=== PATIENT | female | born 1965 | race Two or more races ===

== ENCOUNTER 2023-12-07 20:16 | Emergency (ER) | payer MEDICAID, OTHER ==
[~2023-12-07] VITALS: Ht 165.1 cm; Wt 74.1 kg
[2023-12-07] MEDS: PROMETHAZINE W/CODEINE 5 ML ORAL SYRUP PO ONE (20:54)
[2023-12-07] MEDS: ALBUTEROL SULF 2.5 MG/0.5ML(0.5%) NEB SOLN NEB ONE (21:01)
[2023-12-07 21:18] LABS: Basophils # (auto) 0.1 10 ^3/uL (0-0.2); Basophils % (auto) 0.8 % (0.0-2.0); Eosinophils # (auto) 0.1 10 ^3/uL (0-0.8); Eosinophils % (auto) 0.7 % (0.0-7.0); Hematocrit 38.8 % (36.0-46.0); Hemoglobin 12.7 g/dL (12.2-16.2); Lymphocytes # (auto) 3.4 10 ^3/uL (0.4-5.4); Lymphocytes % (auto) 30.4 % (10.0-50.0); Mean Corpuscular Hemoglobin 28.2 pg (28.0-32.0); Mean Corpuscular Hgb Conc. 32.8 g/dL (32.0-36.0); Monocytes # (auto) 0.8 10 ^3/uL (0-1.3); Monocytes % (auto) 7.5 % (0.0-12.0); Neutrophils # (auto) 6.8 10 ^3/uL (1.6-8.6); Neutrophils % (auto) 60.6 % (37.0-80.0); Red Blood Cells 4.52 10^6/uL (4.0-5.20); Red Cell Distribution Width 13.8 % (11.8-14.3); White Blood Cell 11.2 10^3/uL (4.4-10.8)
[2023-12-07 21:30] LABS: Alanine Aminotransferase 13 U/L (7-40); Albumin 4.3 g/dL (3.2-4.8); Alkaline Phosphatase 107 U/L (46-116); Anion Gap 6 (5-15); Aspartate Aminotransferase 12 U/L (13-40); BUN/Creatinine Ratio 11.9 (10.0-20.0); Bilirubin, Total 0.4 mg/dL (0.2-1.0); Blood Urea Nitrogen 10 mg/dL (9-23); Calcium 9.4 mg/dL (8.7-10.4); Carbon Dioxide 25 mmol/L (20-30); Chloride 111 mmol/L (98-107); Glucose 122 mg/dL (74-106); Potassium 3.8 mmol/L (3.5-5.1); Sodium 142 mmol/L (136-145)
[2023-12-07] MEDS ORDERED: cefTRIAXone W LIDOCAINE 1 GM IM IM ONE (21:45)
[2023-12-07 22:20] VITALS: PULSE 90; RESP 16; O2SAT 98
[2023-12-07] MEDS: LIDOCAINE 1% HCL (LOCAL ANESTH.) INJ 20ML MDV ONE (22:20)
[2023-12-07] MEDS: cefTRIAXone SOD 1,000 MG VL IM ONE (22:20)
[2023-12-07 23:07] LABS: COVID19 ANTIGEN SOFIA FIA NEGATIVE (NEGATIVE)
[2023-12-08] MEDS ORDERED: AUG875T PO (02:51)
[2023-12-08] MEDS ORDERED: ALBUAER3 IN (02:51)
[2023-12-08 03:15] VITALS: BP 105/69; PULSE 92; RESP 18; TEMP 98.5; O2SAT 96
== END 2023-12-08 03:28 | disposition home or self-care (01) ==
LOC: ER 20:16
DX: J18.9 Pneumonia, unspecified organism (principal); Z20.822 Contact with and (suspected) exposure to COVID-19
CPT/HCPCS: 36415; 71045; 80053; 84484; 85025; 87426; 93005; 94640; 96372; 99285; J0696; J2001

== ENCOUNTER 2024-05-05 16:48 | Emergency (ER) | payer MEDICAID ==
[~2024-05-05] VITALS: Ht 165.1 cm; Wt 77.5 kg
[~2024-05-05 16:48] MED LIST: ALBUAER3 IN; AUG875T PO
--- NOTE | 2024-05-05 17:08 | ED.PDOC ---
History of Present Illness HPI Comments 58F who is pashto speaking only, presents to the ER w/ no prior Hx associated to the c/c of LE. Pt reports that a pig ran into her left knee 1 week ago and ever since then she has been having pain on the LE as well as swelling. Pt notes that she has been taking ibuprofen for the pain. Denies chills, fever, N/V/D, SOB, CP or other associated symptom's, modifiers, or recent injuries or sick contact at this time. Chief Complaint: Lower Extremity Time Seen by MD: 17:00 Reviewed Notes: Nurses Notes, Medications, Allergies Allergies: Coded Allergies: NO KNOWN ALLERGIES (Unverified , 12/07/23) Home Meds Active Scripts Albuterol Sulfate (VENTOLIN MDI) 90 Mcg Ih, 90 MCG IN Q6HP PRN for 10 Days, MCG Prov:SUE TRENT MD 12/08/23 Amoxicillin & Pot Clavulanate (AUGMENTIN TABLET) 875 Mg Tb, 875 MG PO BID for 10 Days, #20 TAB Prov:SUE TRENT MD 12/08/23 Albuterol Sulfate (VENTOLIN MDI) 90 Mcg Ih, 180 MCG IN Q6HP PRN for 10 Days, #1 MCG Prov:SUE TRENT MD 12/08/23 Information Source: Patient Mode of Arrival: Ambulatory Severity: Moderate Timing: Days Duration: Since onset, Days Prehospital treatment: None Past Medical History PAST MEDICAL HISTORY: Denies Surgical History: Denies all surgeries ASSEMBLER ADJUSTER History: Denies all ASSEMBLER ADJUSTER Hx Family History Family History: Reviewed,noncontributory to illness, Unknown Social History Smoker: Non-Smoker Alcohol: Denies ETOH Use Drugs: Denies Drug Use Lives In: Home Constitutional: reports: others (Left knee pain); denies: chills, diaphoresis, fatigue, fever, malaise, sweats, weakness EENTM: denies: blurred vision, double vision, ear bleeding, ear discharge, ear drainage, ear pain, ear ringing, eye pain, eye redness, hearing loss, mouth pain, mouth swelling, nasal discharge, nose bleeding, nose congestion, nose pain, photophobia, tearing, throat pain, throat swelling, voice changes, others Respiratory: denies: cough, hemoptysis, orthopnea, SOB at rest, shortness of breath, SOB with excertion, stridor, wheezing, others Cardiovascular: denies: chest pain, dizzy spells, diaphoresis, Dyspnea on exertion, edema, irregular heart beat, left arm pain, lightheadedness, p alpitations, PND, syncope, others Gastrointestinal: denies: abdomen distended, abdominal pain, blood streaked bowels, constipated, diarrhea, dysphagia, difficulty swallowing, hematemesis, melena, nausea, poor appetite, poor fluid intake, rectal bleeding, rectal pain, vomiting, others Genitourinary: denies: abnormal vagina bleeding, burning, dyspareunia, dysuria, flank pain, frequency, hematuria, incontinence, pain, , vagina discharge, urgency, others Neurological: denies: dizziness, fainting, headache, left sided numbness, left sided weakness, numbness, paresthesia, pre-existing deficit, right sided numbness, right sided weakness, seizure, speech problems, tingling, tremors, weakness, others Musculoskeletal: denies: back pain, gout, joint pain, joint swelling, muscle pain, muscle stiffness, neck pain, others Integumetry: denies: bruises, change in color, change in hair/nails, dryness, laceration, lesions, lumps, rash, wounds, others Allergic/Immunocompromised: denies: Difficulty Healing, Frequent Infections, Hives, Itching, others Hematologic/Lymphatic: denies: anemia, blood clots, easy bleeding, easy bruising, swollen glands, others Endocrine: denies: excessive hunger, excessive sweating, excessive thirst, excessive urination, flushing, intolerance to cold, intolerance to heat, unexplained weight gain, unexplained weight loss, others Psychiatric: denies: anxiety, bipolar disorder, depression, hopeless, panic disorder, schizophrenia, sleepless, suicidal, others All Other Systems: Reviewed and Negative Physical Exam Exam Comments Left knee swollen No instability or bruising Tender to palpation General Appearance: No Apparent Distress, Normal HEENT: Normal ENT Inspection, Pharynx Normal, TMs Normal Neck: Full Range of Motion, Non-Tender, Normal, Normal Inspection Respiratory: Chest Non-Tender, Lungs Clear, No Accessory Muscle Use, No Respiratory Distress, Normal Breath Sounds Cardiovascular: No Edema, No JVD, No Murmur, No Gallop, Normal Peripheral Pulses, Regular Rate/Rhythm Breast Exam: Deferred Gastrointestinal: No Organomegaly, Non Tender, No Pulsatile Mass, Normal Bowel Sounds, Soft Genitalia: Deferred Pelvic: Deferred Rectal: Deferred Extremities: No calf tenderness, Normal capillary refill, Normal inspection, Normal range of motion, Non-tender, No pedal edema Musculoskeletal : Apperance: Normal Neurologic: Alert, grain commodity manager II-XII nml as Tested, No Motor Deficits, Normal Affect, Normal Mood, No Sensory Deficits Cerebellar Function: Normal Reflexes: Normal Skin: Dry, Normal Color, Warm Lymphatic: No Adenopathy Was a procedure done? Was a procedure done?: Yes Sedation Sedation?: No Informed consent obtained: Yes Other Procedure Procedure left knee immobilizer placed in good position, with intact neurovascular functions Differential Dx Considerations may include: dislocation, fracture, sprain, strain, contusion X-Ray, Labs, Meds, VS Vital Signs Date Time Temp Pulse Resp B/P (MAP) Pulse Ox O2 Delivery O2 Flow Rate FiO2 05/05/24 17:10 98.3 90 18 119/75 (90) 97 98.3 05/05/24 17:10 90 18 97 Room Air 05/05/24 17:02 99.6 97 18 130/78 (95) 98 Current Medications Medications (Trade) Dose Ordered Sig/Andrei Route Start Time Stop Time Status Last Admin Ketorolac Tromethamine (Toradol Injection) 60 mg ONCE ONCE IM 05/05/24 17:15 05/05/24 17:16 DC 05/05/24 17:12 Time of 1ST Reevaluation: 17:30 Reevaluation 1ST: Unchanged Time of 2ND Reevaluation: 19:23 Patient Education/Counseling: Diagnosis, Treatment, Prognosis, Need For Follow Up Family Education/Counseling: No Family Present Additional Information - I reviewed the following notes from patient's past medical encounters:12/07/23 - The following tests were ordered, and results were reviewed by me:X-Ray - I reviewed and agreed with the following test results read by other provider: X-ray - I discussed treatments and results with medical personnel pt has a contused knee. there is no instability. xray does not show a fracture of dislocation. i will place a knee immobilizer on for comfort, recommend RICE, and issue her crutches. she is stable to follow up with her PCP in 3 days Departure 1 Departure Time of Disposition: 19:24 Impression: Primary Impression: Left knee sprain Qualified Codes: S83.92XA - Sprain of unspecified site of left knee, initial encounter Disposition: HOME / SELF CARE / HOMELESS Condition: Good Additional Instructions: elevat the affected knee, use cold compress, knee immobilizer and crutches. follow up with your doctor in 3 days e-Prescriptions Ibuprofen Micronized (MOTRIN TABLET) 600 Mg Tb 600 MG PO TID PRN, #40 TAB *Black box warning-NSAIDS can increase risk of IL & hypertension, GI irritation, ulceration, bleed, perferation. Do not use post cardiac surgery. Use short duration/lowest effective dose. Prov: SURJIT COLINDRES MD 05/05/24 Discharged With: Self Critical Care Note Critical Care Time?: No Stability Stability form required: No I personally scribed for SURJIT COLINDRES MD ([email or web address]) on 05/05/24 at 17:08. Electronically submitted by Sedrick Quispe ([employer]). I personally scribed for SURJIT COLINDRES MD ([email or web address]) on 05/05/24 at 17:09. Electronically submitted by Sedrick Quispe ([employer]). SURJIT COLINDRES MD May 05, 2024 17:08
[2024-05-05] MEDS: KETOROLAC TROMETH 60MG/2ML VIAL IM ONE (17:12)
--- NOTE | 2024-05-05 18:11 | DVH ---
CLINICAL INDICATION: injury TECHNIQUE: 3 radiographic views of the left knee were obtained. Comparison: None FINDINGS/IMPRESSION: There is no evidence of acute fracture or dislocation. If symptoms persist recommend MRI. The visualized joint space is well maintained. The alignment is anatomical. There is no radiopaque foreign body.
[2024-05-05] MEDS ORDERED: IBU600T PO (19:25)
[2024-05-05 20:20] VITALS: BP 94/71; PULSE 79; RESP 16; TEMP 98.5; O2SAT 98
== END 2024-05-05 20:22 | disposition home or self-care (01) ==
LOC: ER 16:48
DX: S83.8X2A Sprain of other specified parts of left knee, initial encounter (principal); Z79.899 Other long term (current) drug therapy; X58.XXXA Exposure to other specified factors, initial encounter; Y93.89 Activity, other specified; Y92.89 Other specified places as the place of occurrence of the external cause; Y99.8 Other external cause status
CPT/HCPCS: 29505; 73562; 96372; 99283; J1885

== ENCOUNTER 2024-09-15 21:32 | Inpatient (IN) | payer MEDICAID ==
[~2024-09-15] VITALS: Ht 165.1 cm; Wt 75.6 kg
[~2024-09-15 21:32] MED LIST changes: +IBU600T PO
--- NOTE | 2024-09-15 22:19 | ED.PDOC ---
SOB-HPI HPI Comments PT PRESENTED TO ED FOR FLU-LIKE S/S: LEFT EARACHE, PRODUCTIVE COUGH, SORE THROA T, N/V, AND CHILLS X3 DAYS. DENIES DIFFICULTY BREATHING, SHORTNESS OF BREATH, CHEST PAIN. Chief Complaint: Flu like Time Seen by MD: 21:51 Primary Care Provider: UNKNOWN Reviewed notes: Nurses Notes, Medications, Allergies Information Source: Patient Mode of Arrival: Ambulatory Past Medical History PAST MEDICAL HISTORY: Denies Surgical History: Denies all surgeries CLINICAL EDUCATOR History: Denies all CLINICAL EDUCATOR Hx Family History Family History: Reviewed,noncontributory to illness, Unknown Social History Smoker: Non-Smoker Alcohol: Denies ETOH Use Drugs: Denies Drug Use Lives In: Home Constitutional: reports: chills, fatigue; denies: diaphoresis, fever, malaise, sweats, weakness, others EENTM: reports: nasal discharge, throat pain; denies: blurred vision, double vision, ear bleeding, ear discharge, ear drainage, ear pain, ear ringing, eye pain, eye redness, hearing loss, mouth pain, mouth swelling, nose bleeding, nose congestion, nose pain, photophobia, tearing, throat swelling, voice changes, others Respiratory: reports: cough; denies: hemoptysis, orthopnea, SOB at rest, shortness of breath, SOB with excertion, stridor, wheezing, others Cardiovascular: denies: chest pain, dizzy spells, diaphoresis, Dyspnea on exertion, edema, irregular heart beat, left arm pain, lightheadedness, palpitations, PND, syncope, others Gastrointestinal: reports: nausea, vomiting; denies: abdomen distended, abdominal pain, blood streaked bowels, constipated, diarrhea, dysphagia, difficulty swallowing, hematemesis, melena, poor appetite, poor fluid intake, rectal bleeding, rectal pain, others Genitourinary: denies: abnormal vagina bleeding, burning, dyspareunia, dysuria, flank pain, frequency, hematuria, incontinence, pain, , vagina discharge, urgency, others Neurological: denies: dizziness, fainting, headache, left sided numbness, left sided weakness, numbness, paresthesia, pre-existing deficit, right sided numbnes s, right sided weakness, seizure, speech problems, tingling, tremors, weakness, others Musculoskeletal: denies: back pain, gout, joint pain, joint swelling, muscle pain, muscle stiffness, neck pain, others Integumetry: denies: bruises, change in color, change in hair/nails, dryness, laceration, lesions, lumps, rash, wounds, others Allergic/Immunocompromised: denies: Difficulty Healing, Frequent Infections, Hives, Itching, others Hematologic/Lymphatic: denies: anemia, blood clots, easy bleeding, easy bruising, swollen glands, others Endocrine: denies: excessive hunger, excessive sweating, excessive thirst, excessive urination, flushing, intolerance to cold, intolerance to heat, unexplained weight gain, unexplained weight loss, others Psychiatric: denies: anxiety, bipolar disorder, depression, hopeless, panic disorder, schizophrenia, sleepless, suicidal, others Physical Exam General Appearance: No Apparent Distress, Normal HEENT: Pharyngeal Erythema, TMs Normal Neck: Full Range of Motion, Non-Tender Respiratory: Decreased Breath Sounds, No Respiratory Distress Cardiovascular: No Edema, No JVD, No Murmur, No Gallop, Normal Peripheral Pulse s, Regular Rate/Rhythm Breast Exam: Deferred Gastrointestinal: No Organomegaly, Non Tender, No Pulsatile Mass, Normal Bowel Sounds, Soft Genitalia: Deferred Pelvic: Deferred Rectal: Deferred Extremities: Normal capillary refill, Normal inspection, Normal range of motion, Non-tender, No pedal edema Musculoskeletal : Apperance: Normal Neurologic: Alert, tag press operator II-XII nml as Tested, No Motor Deficits, Normal Affect, Normal Mood, No Sensory Deficits Cerebellar Function: Normal Reflexes: Normal Skin: Dry, Normal Color, Warm Lymphatic: No Adenopathy Was a procedure done? Was a procedure done?: No Differential Dx Differential Diagnosis: Bronchitis, Pneumonia, Pharyngitis, URI X-Ray, Labs, Meds, VS Vital Signs Date Time Temp Pulse Resp B/P (MAP) Pulse Ox O2 Delivery O2 Flow Rate FiO2 09/16/24 00:15 100.2 105 19 102/57 (72) 95 100.2 09/16/24 00:15 100.2 09/15/24 22:53 101.3 09/15/24 22:41 120 20 96 Room Air 09/15/24 22:41 101.3 120 20 109/63 (78) 96 101.3 09/15/24 21:46 100.4 124 18 120/76 (91) 94 100.4 Lab Test 09/15/24 23:40 09/15/24 22:30 Range/Units White Blood Count 21.3 H 4.4-10.8 10^3/uL Red Blood Count 4.44 4.0-5.20 10^6/uL Hemoglobin 12.6 12.2-16.2 g/dL Hematocrit 38.6 36.0-46.0 % Mean Corpuscular Volume 87.0 80.0-100.0 fL Mean Corpuscular Hemoglobin 28.3 28.0-32.0 pg Mean Corpuscular Hemoglobin Concent 32.5 32.0-36.0 g/dL Red Cell Distribution Width 14.0 11.8-14.3 % Platelet Count 232 140-450 10^3/uL Mean Platelet Volume 9.4 6.9-10.8 fL Neutrophils (%) (Auto) 85.8 H 37.0-80.0 % Lymphocytes (%) (Auto) 7.5 L 10.0-50.0 % Monocytes (%) (Auto) 6.4 0.0-12.0 % Eosinophils (%) (Auto) 0.0 0.0-7.0 % Basophils (%) (Auto) 0.3 0.0-2.0 % Neutrophils # (Auto) 18.2 H 1.6-8.6 10 ^3/uL Lymphocytes # (Auto) 1.6 0.4-5.4 10 ^3/uL Monocytes # (Auto) 1.4 H 0-1.3 10 ^3/uL Eosinophils # (Auto) 0 0-0.8 10 ^3/uL Basophils # (Auto) 0.1 0-0.2 10 ^3/uL Nucleated Red Blood Cells 0.0 % Sodium Level 138 136-145 mmol/L Potassium Level 3.5 3.5-5.1 mmol/L Chloride Level 106 98-107 mmol/L Carbon Dioxide Level 22 20-31 mmol/L Anion Gap 10 5-15 Blood Urea Nitrogen 15 9-23 mg/dL Creatinine 0.84 0.550-1.02 mg/dL Glomerular Filtration Rate Calc 80 >90 mL/min BUN/Creatinine Ratio 17.9 10.0-20.0 Serum Glucose 163 H 74-106 mg/dL Lactic Acid Level 0.9 0.4-2.0 mmol/L Calcium Level 8.6 L 8.7-10.4 mg/dL Total Bilirubin 0.4 0.2-1.0 mg/dL Aspartate Amino Transferase (AST) 15 13-40 U/L Alanine Aminotransferase (ALT) 13 7-40 U/L Alkaline Phosphatase 93 46-116 U/L Total Protein 7.3 5.7-8.2 g/dL Albumin 4.1 3.2-4.8 g/dL Influenza Type A Antigen Negative Negative Influenza Type B Antigen Negative Negative SARS-CoV-2 Antigen (Rapid) Negative NEGATIVE Current Medications Medications (Trade) Dose Ordered Sig/Andrei Route Start Time Stop Time Status Last Admin Sodium Chloride 1,000 ml @ 1,000 mls/hr Q1H ONCE IV 09/15/24 22:30 09/15/24 23:29 DC 09/15/24 22:48 Acetaminophen (Tylenol Tablet Or Capsule) 500 mg ONCE ONCE PO 09/15/24 22:45 09/15/24 22:46 DC 09/15/24 22:53 X-Ray, Labs, Meds, VS Comment IMAGING: Chest x-ray reviewed shows left upper lobe pneumonia MEDICATIONS: TORADOL 30 MG IV PUSH NS 1000 ML BOLUS CEFTRIAXONE 1 G IV PIGGYBACK SWABS: Negative influenza a and B Negative COVID 19 LABS: WBC HIGH 21.3 NEUTROPHILS 89.3 LACTIC 0.9 CMP WITHIN NORMAL LIMITS UA PENDING PLAN: We will admit to hospitalist for pneumonia and leukocytosis white blood count of 21.3 neutrophils 89.3 Time of 1ST Reevaluation: 22:18 Reevaluation 1ST: Unchanged Time of 2ND Reevaluation: 02:33 Reevaluation 2ND: Improved Patient Education/Counseling: Diagnosis, Treatment, Prognosis, Need For Follow Up Family Education/Counseling: Diagnosis, Treatment, Prognosis, Need For Follow Up Departure 1 Departure Time of Disposition: 00:26 Impression: Primary Impression: Pneumonia Qualified Codes: J18.9 - Pneumonia, unspecified organism Additional Impression: Leukocytosis Qualified Codes: D72.829 - Elevated white blood cell count, unspecified Disposition: ADMITTED INPATIENT Condition: Stable Discharged With: Spouse Critical Care Note Critical Care Time?: No Stability Stability form required: No Heart Score Heart Score: Heart Score Response (Comments) Value History N/A 0 EKG N/A 0 Age 45-64 1 Risk Factors N/A 0 Troponin N/A 0 Total 1 HARRY RICE [facility] Sep 15, 2024 22:19
[2024-09-15] MEDS: SODIUM CHLORIDE 0.9% 1,000 ML IV ONE (22:48)
[2024-09-15] MEDS: ACETAMINOPHEN 500 MG TAB or CAP PO ONE (22:53)
[2024-09-15 22:59] LABS: Rapid Influenza A Negative (Negative); Rapid Influenza B Negative (Negative)
[2024-09-15] MEDS: KETOROLAC TROMETH 30 MG/ML 1ML VIAL IV ONE (22:59)
[2024-09-15 23:00] LABS: COVID19 ANTIGEN SOFIA FIA NEGATIVE (NEGATIVE)
--- NOTE | 2024-09-15 23:39 | DVH ---
CHEST RADIOGRAPH Indication: FEVER SOB Technique: Frontal and lateral view of the chest was obtained Comparison: None FINDINGS: Lines and Tubes: None Lungs: Mild opacity noted in the left upper lobe which may represent pneumonia. Right lung is clear. Pleura: No effusion. No pneumothorax. Cardiomediastinal contours: Unremarkable Bones: Unremarkable IMPRESSION: Mild opacity noted in left upper lobe which may represent pneumonia.
[2024-09-15 23:59] LABS: Basophils # (auto) 0.1 10 ^3/uL (0-0.2); Basophils % (auto) 0.3 % (0.0-2.0); Eosinophils # (auto) 0 10 ^3/uL (0-0.8); Hematocrit 38.6 % (36.0-46.0); Hemoglobin 12.6 g/dL (12.2-16.2); Lymphocytes # (auto) 1.6 10 ^3/uL (0.4-5.4); Lymphocytes % (auto) 7.5 % (10.0-50.0); Mean Corpuscular Hemoglobin 28.3 pg (28.0-32.0); Mean Corpuscular Hgb Conc. 32.5 g/dL (32.0-36.0); Monocytes # (auto) 1.4 10 ^3/uL (0-1.3); Monocytes % (auto) 6.4 % (0.0-12.0); Neutrophils # (auto) 18.2 10 ^3/uL (1.6-8.6); Neutrophils % (auto) 85.8 % (37.0-80.0); Platelet Count (auto) 232 10^3/uL (140-450); Red Blood Cells 4.44 10^6/uL (4.0-5.20); White Blood Cell 21.3 10^3/uL (4.4-10.8)
[2024-09-16] VITALS (10 sets, daily range): BP systolic 92–110; BP diastolic 54–65; PULSE 78–88; RESP 12–20; TEMP 97.2–99; O2SAT 96–100
[2024-09-16] MEDS: cefTRIAXone 1GM/50ML D5W 50 ML IV ONE (00:09)
[2024-09-16 00:15] LABS: Alanine Aminotransferase 13 U/L (7-40); Albumin 4.1 g/dL (3.2-4.8); Alkaline Phosphatase 93 U/L (46-116); Anion Gap 10 (5-15); Aspartate Aminotransferase 15 U/L (13-40); BUN/Creatinine Ratio 17.9 (10.0-20.0); Bilirubin, Total 0.4 mg/dL (0.2-1.0); Blood Urea Nitrogen 15 mg/dL (9-23); Carbon Dioxide 22 mmol/L (20-31); Chloride 106 mmol/L (98-107); Potassium 3.5 mmol/L (3.5-5.1); Sodium 138 mmol/L (136-145); Total Protein 7.3 g/dL (5.7-8.2)
[2024-09-16 00:20] LABS: Calcium 8.6 mg/dL (8.7-10.4); Glucose 163 mg/dL (74-106)
[2024-09-16] MEDS ORDERED: ONDANSETRON HCL 4 MG/2 ML VIAL IV PRN (03:30)
--- NOTE | 2024-09-16 03:31 | DVHHP2 ---
History of Present Illness Reason for Visit: Flu-like symptoms History of Present Illness 58-year-old female presents for evaluation of flu-like symptoms. Patient reports a three day history of body aches, fever and a sore throat. Denies shortness for breath or palpitations. No GI or symptoms. Past Medical History Denies Past Surgical History Denies Family History Noncontributory Smoke: No ALCOHOL: none Drugs: None Lives: with Family Review of Systems Review of Systems Review of systems are currently negative otherwise addressed in HPI. Allergies: Coded Allergies: NO KNOWN ALLERGIES (Unverified , 12/07/23) Exam Vital Signs Vital Signs Date Time Temp Pulse Resp B/P (MAP) Pulse Ox O2 Delivery O2 Flow Rate FiO2 09/16/24 00:15 100.2 105 19 102/57 (72) 95 100.2 09/15/24 22:41 Room Air Exam Gen: 58-year-old female in mild distress Skin: Warm, dry, normal color and texture, no rash. HEENT: Normocephalic atraumatic, mucous membranes moist and pink. Neck: Cervical and supraclavicular nodes normal without enlargement, trachea is midline, thyroid gland is normal without masses. Pulmonary: Diminished breath sounds bilaterally Cardiac: Sinus tachycardia Abdomen: Soft, nontender, nondistended, bowel sounds present all 4 quadrants, no guarding, no rigidity, no organomegaly. Extremities: No cyanosis, clubbing, no edema Neuro: Cranial nerves II through XII grossly intact, normal affect and speech, no focal motor deficits. Labs/Xrays ORDERING PHYSICIAN: HARRY RICE PROCEDURE(s): CXR2 - CHEST TWO VIEWS ROUTINE REASON: FEVER SOB ORDER NUMBER(s): [id number], ACCESSION NUMBER(s): [id number] CHEST RADIOGRAPH Indication: FEVER SOB Technique: Frontal and lateral view of the chest was obtained Comparison: None FINDINGS: Lines and Tubes: None Lungs: Mild opacity noted in the left upper lobe which may represent pneumonia. Right lung is clear. Pleura: No effusion. No pneumothorax. Cardiomediastinal contours: Unremarkable Bones: Unremarkable IMPRESSION: Mild opacity noted in left upper lobe which may represent pneumonia. Labs Test 09/15/24 23:40 09/15/24 22:30 Range/Units White Blood Count 21.3 H 4.4-10.8 10^3/uL Red Blood Count 4.44 4.0-5.20 10^6/uL Hemoglobin 12.6 12.2-16.2 g/dL Hematocrit 38.6 36.0-46.0 % Mean Corpuscular Volume 87.0 80.0-100.0 fL Mean Corpuscular Hemoglobin 28.3 28.0-32.0 pg Mean Corpuscular Hemoglobin Concent 32.5 32.0-36.0 g/dL Red Cell Distribution Width 14.0 11.8-14.3 % Platelet Count 232 140-450 10^3/uL Mean Platelet Volume 9.4 6.9-10.8 fL Neutrophils (%) (Auto) 85.8 H 37.0-80.0 % Lymphocytes (%) (Auto) 7.5 L 10.0-50.0 % Monocytes (%) (Auto) 6.4 0.0-12.0 % Eosinophils (%) (Auto) 0.0 0.0-7.0 % Basophils (%) (Auto) 0.3 0.0-2.0 % Neutrophils # (Auto) 18.2 H 1.6-8.6 10 ^3/uL Lymphocytes # (Auto) 1.6 0.4-5.4 10 ^3/uL Monocytes # (Auto) 1.4 H 0-1.3 10 ^3/uL Eosinophils # (Auto) 0 0-0.8 10 ^3/uL Basophils # (Auto) 0.1 0-0.2 10 ^3/uL Nucleated Red Blood Cells 0.0 % Sodium Level 138 136-145 mmol/L Potassium Level 3.5 3.5-5.1 mmol/L Chloride Level 106 98-107 mmol/L Carbon Dioxide Level 22 20-31 mmol/L Anion Gap 10 5-15 Blood Urea Nitrogen 15 9-23 mg/dL Creatinine 0.84 0.550-1.02 mg/dL Glomerular Filtration Rate Calc 80 >90 mL/min BUN/Creatinine Ratio 17.9 10.0-20.0 Serum Glucose 163 H 74-106 mg/dL Lactic Acid Level 0.9 0.4-2.0 mmol/L Calcium Level 8.6 L 8.7-10.4 mg/dL Total Bilirubin 0.4 0.2-1.0 mg/dL Aspartate Amino Transferase (AST) 15 13-40 U/L Alanine Aminotransferase (ALT) 13 7-40 U/L Alkaline Phosphatase 93 46-116 U/L Total Protein 7.3 5.7-8.2 g/dL Albumin 4.1 3.2-4.8 g/dL Influenza Type A Antigen Negative Negative Influenza Type B Antigen Negative Negative SARS-CoV-2 Antigen (Rapid) Negative NEGATIVE Assessment/Plan Assessment/Plan Assessment Community-acquired pneumonia Leukocytosis Early sepsis Plan Admit the patient to Med [facility] [place] the hospitalist Rocephin/azithromycin Albuterol Continue treatment per orders. Plan discussed with: Patient My Orders Orders - SERJIO MOSELEY Procedure Category Date Status Time Ceftriaxone Ivpb PHA 09/16/24 Verified Rocephin 09:00 Azithromycin 500mg/ PHA 09/16/24 Verified 250ml (Zithromax 50 10:00 Albuterol Medneb PHA 09/16/24 Verified (Ventolin Medneb) 03:30 Basic Metabolic Panel LAB 09/17/24 Verified 04:00 Regular Diet DIET 09/16/24 Verified Breakfast Admit ADMIT 09/16/24 Verified 03:23 Ondansetron Hcl PHA 09/16/24 Verified (Zofran) 03:30 Complete Blood Count LAB 09/17/24 Verified 04:00 Condition: Stable PEÑA 09/16/24 Verified 03:23 Acetaminophen Tablet PHA 09/16/24 Verified (Tylenol Tablet) 03:30 Bedrest With Bathroom PEÑA 09/16/24 Verified Privileg 03:23 Date of Service: Sep 16, 2024 Billing Provider: SERJIO MOSELEY Common Visit Codes: [id number] INP/OBS CARE (HIGH) SERJIO MOSELEY Sep 16, 2024 03:31
[2024-09-16] MEDS: ALBUTEROL SULF 2.5 MG/0.5ML(0.5%) NEB SOLN NEB PRN (05:50)
[2024-09-16] MEDS: AZITHROMYCIN 500MG/ 250ML 250 ML IV SCH (06:16)
[2024-09-16] MEDS: cefTRIAXone 1GM/50ML D5W 50 ML IV SCH (09:12)
--- NOTE | 2024-09-16 16:30 | DVHPN2 ---
Subjective Assuming the care of the patient from today onwards. A 58-year-old female with no significant medical history presented to us with a flu-like symptoms fever chills body aches found to have left-sided pneumonia. Patient has been ruled out for influenza as well as COVID. Changes from previous H/P or p: No Changes Objective Vitals Vital Signs Date Time Temp Pulse Resp B/P (MAP) Pulse Ox O2 Delivery O2 Flow Rate FiO2 09/16/24 15:53 99.0 87 18 110/65 (80) 96 99.0 09/16/24 08:20 2.0 28 09/16/24 05:50 Nasal Cannula* Intake/Output Intake and Output 09/16/24 07:00 Intake Total 1240 ml Balance 1240 ml Intake Oral 240 ml IV Total 1000 ml # Voids 1 Exam HEENT pupils are reactive Neck is supple CVS S1-S2 regular rate and rhythm Respiratory diminished BS on bases GI positive bowel sound Extremity no edema SUGAR PRESSER no motor deficit Medications Current Medications Medications Dose Ordered Sig/Andrei Route Start Time Stop Time Status Last Admin Dose Admin Ceftriaxone Sodium 50 ml @ 100 mls/hr DAILY@09 IV 09/16/24 09:00 09/16/24 09:12 100 MLS/HR Azithromycin 250 ml @ 125 mls/hr DAILY IV 09/16/24 06:00 09/16/24 06:16 125 MLS/HR Albuterol 2.5 mg Q6HPRN PRN NEB 09/16/24 03:30 09/16/24 05:50 2.5 MG Ondansetron HCl 4 mg Q4HP PRN IV 09/16/24 03:30 Acetaminophen 650 mg Q6HP PRN PO 09/16/24 03:30 Laboratory Results Laboratory Tests 09/15/24 23:40 Chemistry Test 09/15/24 23:40 Albumin 4.1 g/dL (3.2-4.8) Calcium Level 8.6 mg/dL (8.7-10.4) L Total Protein 7.3 g/dL (5.7-8.2) LFT Test 09/15/24 23:40 Alanine Aminotransferase (ALT) 13 U/L (7-40) Alkaline Phosphatase 93 U/L (46-116) Aspartate Amino Transferase (AST) 15 U/L (13-40) Total Bilirubin 0.4 mg/dL (0.2-1.0) Assessment/Plan Assessment/Plan 58-year-old female with no significant past medical history presented to the hospital with flu-like symptoms fevers chills body aches at home found to have 1. Community-acquired pneumonia 2. Leukocytosis likely reactive secondary to 1. 3. Fever body aches rigors and chills, rule out bacteremia -blood cultures time two, continue IV antibiotics, repeat CBC Plan discussed with: Patient, Daughter My Orders Orders - DALLIN UMANZOR MD Procedure Category Date Status Time Blood Culture CARL 09/16/24 In Process 14:39 Date of Service: Sep 16, 2024 Billing Provider: DALLIN UMANZOR MD Common Visit Codes: [id number] INP/OBS CARE(MOD) DALLIN UMANZOR MD Sep 16, 2024 16:30
[2024-09-16] MEDS: ACETAMINOPHEN 325 MG TAB PO PRN (17:16)
[2024-09-17] VITALS (11 sets, daily range): BP systolic 100–119; BP diastolic 60–71; PULSE 72–82; RESP 14–20; TEMP 98–99.3; O2SAT 94–100
[2024-09-17] MEDS ORDERED: NALOXONE HCL 0.4 MG/ML VIAL ONE (00:20)
[2024-09-17] MEDS ORDERED: NOREPINEPHRINE 8 MG/250ML KIT 250 ML IV ONE (00:27)
[2024-09-17 06:18] LABS: Chloride 104 mmol/L (98-107); Potassium 3.6 mmol/L (3.5-5.1); Sodium 140 mmol/L (136-145)
[2024-09-17 06:19] LABS: Anion Gap 9 (5-15); Carbon Dioxide 27 mmol/L (20-31)
[2024-09-17 06:20] LABS: Calcium 9.1 mg/dL (8.7-10.4)
[2024-09-17 06:25] LABS: BUN/Creatinine Ratio 16.4 (10.0-20.0); Blood Urea Nitrogen 11 mg/dL (9-23)
[2024-09-17 06:34] LABS: Glucose 116 mg/dL (74-106)
[2024-09-17 06:41] LABS: Basophils # (auto) 0 10 ^3/uL (0-0.2); Basophils % (auto) 0.1 % (0.0-2.0); Eosinophils # (auto) 0.1 10 ^3/uL (0-0.8); Eosinophils % (auto) 0.4 % (0.0-7.0); Hematocrit 35.4 % (36.0-46.0); Hemoglobin 11.9 g/dL (12.2-16.2); Lymphocytes # (auto) 3.3 10 ^3/uL (0.4-5.4); Lymphocytes % (auto) 24.3 % (10.0-50.0); Mean Corpuscular Hemoglobin 29.2 pg (28.0-32.0); Mean Corpuscular Hgb Conc. 33.7 g/dL (32.0-36.0); Mean Corpuscular Volume 86.6 fL (80.0-100.0); Monocytes % (auto) 7.4 % (0.0-12.0); Neutrophils # (auto) 9.2 10 ^3/uL (1.6-8.6); Neutrophils % (auto) 67.8 % (37.0-80.0); Platelet Count (auto) 228 10^3/uL (140-450); Red Blood Cells 4.09 10^6/uL (4.0-5.20); Red Cell Distribution Width 14.3 % (11.8-14.3); White Blood Cell 13.5 10^3/uL (4.4-10.8)
--- NOTE | 2024-09-17 16:23 | DVHPN2 ---
Subjective A 58-year-old female with no significant medical history presented to us with a flu-like symptoms fever chills body aches found to have left-sided pneumonia. Patient has been ruled out for influenza as well as COVID. 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 Medications Current Medications Medications Dose Ordered Sig/Andrei Route Start Time Stop Time Status Last Admin Dose Admin Ceftriaxone Sodium 50 ml @ 100 mls/hr DAILY@09 IV 09/16/24 09:00 09/17/24 09:38 100 MLS/HR Azithromycin 250 ml @ 125 mls/hr DAILY IV 09/16/24 06:00 09/17/24 09:38 125 MLS/HR Albuterol 2.5 mg Q6HPRN PRN NEB 09/16/24 03:30 09/16/24 18:47 2.5 MG Ondansetron HCl 4 mg Q4HP PRN IV 09/16/24 03:30 Acetaminophen 650 mg Q6HP PRN PO 09/16/24 03:30 09/16/24 17:16 650 MG Laboratory Results Laboratory Tests 09/17/24 05:24 Chemistry Test 09/17/24 05:24 Calcium Level 9.1 mg/dL (8.7-10.4) Microbiology Microbiology Date/Time Source Procedure Growth Status 09/16/24 15:05 Blood Blood Culture - Preliminary NO GROWTH AFTER 24 HOURS OF INCUBATION. Resulted Assessment/Plan Assessment/Plan 58-year-old female with no significant past medical history presented to the hospital with flu-like symptoms fevers chills body aches at home found to have 1. Community-acquired pneumonia 2. Leukocytosis likely reactive secondary to 1. 3. Fever body aches rigors and chills, rule out bacteremia -blood cultures are pending, continue IV antibiotics, repeat CBC. Plan discussed with: Patient, Daughter My Orders Orders - DALLIN UMANZOR MD Procedure Category Date Status Time Basic Metabolic Panel LAB 09/18/24 Verified 06:00 Complete Blood Count LAB 09/18/24 Verified 06:00 Magnesium LAB 09/18/24 Verified 06:00 Date of Service: Sep 17, 2024 Billing Provider: DALLIN UMANZOR MD Common Visit Codes: [id number] INP/OBS CARE(MOD) DALLIN UMANZOR MD Sep 17, 2024 16:23
[2024-09-18] VITALS (7 sets, daily range): BP systolic 99–116; BP diastolic 58–68; PULSE 69–81; RESP 14–20; TEMP 98–98.8; O2SAT 92–98
[2024-09-18 05:57] LABS: Basophils # (auto) 0 10 ^3/uL (0-0.2); Basophils % (auto) 0.4 % (0.0-2.0); Eosinophils # (auto) 0.1 10 ^3/uL (0-0.8); Eosinophils % (auto) 1.4 % (0.0-7.0); Hematocrit 36.4 % (36.0-46.0); Lymphocytes # (auto) 2.9 10 ^3/uL (0.4-5.4); Lymphocytes % (auto) 34.5 % (10.0-50.0); Mean Corpuscular Hemoglobin 28.6 pg (28.0-32.0); Mean Corpuscular Hgb Conc. 32.9 g/dL (32.0-36.0); Mean Corpuscular Volume 87.1 fL (80.0-100.0); Monocytes # (auto) 0.6 10 ^3/uL (0-1.3); Monocytes % (auto) 7.6 % (0.0-12.0); Neutrophils # (auto) 4.7 10 ^3/uL (1.6-8.6); Neutrophils % (auto) 56.1 % (37.0-80.0); Nucleated Red Blood Cells % 0.1 %; Platelet Count (auto) 284 10^3/uL (140-450); Red Blood Cells 4.19 10^6/uL (4.0-5.20); Red Cell Distribution Width 14.6 % (11.8-14.3); White Blood Cell 8.4 10^3/uL (4.4-10.8)
[2024-09-18 06:01] LABS: Chloride 105 mmol/L (98-107); Potassium 3.7 mmol/L (3.5-5.1); Sodium 140 mmol/L (136-145)
[2024-09-18 06:02] LABS: Anion Gap 7 (5-15); Calcium 9.3 mg/dL (8.7-10.4); Carbon Dioxide 28 mmol/L (20-31)
[2024-09-18 06:07] LABS: BUN/Creatinine Ratio 16.9 (10.0-20.0); Blood Urea Nitrogen 12 mg/dL (9-23)
[2024-09-18 06:08] LABS: Magnesium 2.1 mg/dL (1.6-2.6)
[2024-09-18 06:12] LABS: Glucose 121 mg/dL (74-106)
[2024-09-18] MEDS ORDERED: AUG875T PO (18:04)
--- NOTE | 2024-09-18 18:06 | DVHDS2 ---
Discharge Summary Date of Admission Sep 16, 2024 at 03:23 Date of Discharge: Sep 18, 2024 Labs/Diagnostic Data: Laboratory Results Test 09/18/24 05:12 09/16/24 15:00 09/15/24 23:40 09/15/24 22:30 White Blood Count 8.4 10^3/uL (4.4-10.8) Red Blood Count 4.19 10^6/uL (4.0-5.20) Hemoglobin 12.0 g/dL (12.2-16.2) Hematocrit 36.4 % (36.0-46.0) Mean Corpuscular Volume 87.1 fL (80.0-100.0) Mean Corpuscular Hemoglobin 28.6 pg (28.0-32.0) Mean Corpuscular Hemoglobin Concent 32.9 g/dL (32.0-36.0) Red Cell Distribution Width 14.6 % (11.8-14.3) Platelet Count 284 10^3/uL (140-450) Mean Platelet Volume 9.6 fL (6.9-10.8) Neutrophils (%) (Auto) 56.1 % (37.0-80.0) Lymphocytes (%) (Auto) 34.5 % (10.0-50.0) Monocytes (%) (Auto) 7.6 % (0.0-12.0) Eosinophils (%) (Auto) 1.4 % (0.0-7.0) Basophils (%) (Auto) 0.4 % (0.0-2.0) Neutrophils # (Auto) 4.7 10 ^3/uL (1.6-8.6) Lymphocytes # (Auto) 2.9 10 ^3/uL (0.4-5.4) Monocytes # (Auto) 0.6 10 ^3/uL (0-1.3) Eosinophils # (Auto) 0.1 10 ^3/uL (0-0.8) Basophils # (Auto) 0 10 ^3/uL (0-0.2) Nucleated Red Blood Cells 0.1 % Sodium Level 140 mmol/L (136-145) Potassium Level 3.7 mmol/L (3.5-5.1) Chloride Level 105 mmol/L (98-107) Carbon Dioxide Level 28 mmol/L (20-31) Anion Gap 7 (5-15) Blood Urea Nitrogen 12 mg/dL (9-23) Creatinine 0.71 mg/dL (0.550-1.02) Glomerular Filtration Rate Calc 97 mL/min (>90) BUN/Creatinine Ratio 16.9 (10.0-20.0) Serum Glucose 121 mg/dL (74-106) Calcium Level 9.3 mg/dL (8.7-10.4) Magnesium Level 2.1 mg/dL (1.6-2.6) Hemoglobin A1c 5.9 % A1C (<5.7) Lactic Acid Level 0.9 mmol/L (0.4-2.0) Total Bilirubin 0.4 mg/dL (0.2-1.0) Aspartate Amino Transferase (AST) 15 U/L (13-40) Alanine Aminotransferase (ALT) 13 U/L (7-40) Alkaline Phosphatase 93 U/L (46-116) Total Protein 7.3 g/dL (5.7-8.2) Albumin 4.1 g/dL (3.2-4.8) Influenza Type A Antigen Negative (Negative) Influenza Type B Antigen Negative (Negative) SARS-CoV-2 Antigen (Rapid) Negative (NEGATIVE) Other Laboratory Tests 09/18/24 05:12 Brief Hx & Hospital Course: 58-year-old female with no significant past medical history presented to the hospital with flu-like symptoms fevers chills body aches at home found to have community-acquired pneumonia. Patient has a WBC count high as well. As per patient and patient was daughter she was having fevers chills rigors at home. COVID-19 and influenza are negative. Patient was found to have community- acquired pneumonia which was treated with IV antibiotics. WBC count trended down blood cultures are negative to date. Patient was being discharged under stable condition. Patient was to be given p.o. antibiotics for seven days. Condition at Discharge: Stable Final Diagnosis/Problems List 58-year-old female with no significant past medical history presented to the hospital with flu-like symptoms fevers chills body aches at home found to have 1. Community-acquired pneumonia 2. Leukocytosis likely reactive secondary to 1. 3. Fever body aches rigors and chills, rule out bacteremia -blood cultures time two, continue IV antibiotics, repeat CB Discharge Disposition: Home SNF Discharge Will this Physician continue t: No Discharge Statement: "Patient was advised to return to the ER or call 911 if any headaches, dizziness, shortness of breath, chest pain, abdominal pain, bleeding, fevers, or worsening of medical condition. Patient was counseled about treatment plan, medications, possible side effects, patientverbalized understanding. All questions were answered to the best of my ability. This discharge took greater then 30 minutes in planning, reviewing documentation, counseling the patient, and discussing with other team members." ASSESSMENT ASSESSMENT Assessment Date of Service: Sep 18, 2024 Billing Provider: DALLIN UMANZOR MD Common Visit Codes: [id number] DISCH DAY >30min DALLIN UMANZOR MD Sep 18, 2024 18:06
== END 2024-09-18 18:38 | disposition home or self-care (01) | DRG 720 ==
LOC: ER 21:32 → OVERFLOW 09-16 03:23 → EAST 09-16 21:59
PROVIDERS: ADMIT Internal Medicine; ATTEND Internal Medicine
DX: A41.9 Sepsis, unspecified organism (principal); J15.69 Pneumonia due to other Gram-negative bacteria; D72.829 Elevated white blood cell count, unspecified; Z20.822 Contact with and (suspected) exposure to COVID-19; Z79.899 Other long term (current) drug therapy; J15.9 Unspecified bacterial pneumonia
CPT/HCPCS: 36415; 71046; 80048; 80053; 83036; 83605; 83735; 85025; 87040; 87426; 87804; 94640; 96360; G0378; J1885